=== PATIENT | male | born 1995 | race Caucasian/White ===

== ENCOUNTER 2017-12-28 18:14 | Emergency (ER) | payer BC ==
[~2017-12-28] VITALS: Ht 170.2 cm; Wt 62.7 kg
[2017-12-28 18:16] VITALS: TEMP 36.8; Ht 170.2 cm; Wt 62.7 kg
[2017-12-28] MEDS ORDERED: KETOROLAC TROMETHAMINE 30 MG/ML VIAL IV STA (18:31)
[2017-12-28] MEDS ORDERED: CEFTRIAXONE SOD INJ 1 GM ADDVIAL IV STA (18:31)
[2017-12-28 19:05] LABS: BASO % 0.1 %; BASO ABS # 0.01 K/uL (0-0.2); EOS % 0.6 %; EOS ABS # 0.06 K/uL (0-0.5); HEMOGLOBIN 15.7 g/dL (14.0-18.0); IG# 0.01 K/uL (0.00-0.02); LYMPH % 21.4 %; LYMPH ABS # 2.08 K/uL (1.2-3.4); MEAN CELL VOLUME 89.4 fL (80-100); MEAN CORPUSCULAR HEMOGLOBIN 31.9 pg (25-34); MEAN CORPUSCULAR HGB CONC 35.7 g/dl (32-36); MEAN PLATELET VOLUME 10.1 fL (7.4-10.4); MONO ABS # 1.17 K/uL (0.11-0.59); NEUT % 65.8 %; NEUT ABS # 6.39 K/uL (1.4-6.5); PLATELET COUNT 190 K/uL (130-400); RED CELL DISTRIBUTION WIDTH CV 12.7 % (11.5-14.5); RED CELL DISTRIBUTION WIDTH SD 41.2 fL (36.4-46.3); WHITE BLOOD COUNT 9.72 K/uL (4.8-10.8)
--- NOTE | 2017-12-28 19:18 | DIAGNOSTIC IMAGING REPORT ---
R KNEE 3 VIEWS HISTORY: 22 years-old Male Right knee swelling/injury acute right knee pain and swelling COMPARISON: None available TECHNIQUE: 3 views of the right knee FINDINGS: There is moderate to extensive prepatellar soft tissue swelling without opaque foreign body. No acute fracture, dislocation or significant degenerative changes. Trace joint effusion. IMPRESSION: 1. No acute fracture or dislocation. 2. Moderate to extensive prepatellar soft tissue swelling. Correlate clinically to exclude bursitis. The above report was generated using voice recognition software. It may contain grammatical, syntax or spelling errors. Electronically signed by: Vinny Dallas M.D. 12/28/2017 7:17 PM Dictated Date/Time: 12/28/2017 7:15 PM
[2017-12-28 19:25] LABS: CALCIUM 8.8 mg/dl (8.5-10.1); CREATININE 0.96 mg/dl (0.60-1.40); POTASSIUM 3.1 mmol/L (3.5-5.1); TOTAL PROTEIN 7.5 gm/dl (6.4-8.2); URIC ACID 3.8 mg/dl (2.6-7.2)
[2017-12-28] MEDS ORDERED: DOXY100C PO (20:25)
--- NOTE | 2017-12-28 21:11 | EMERGENCY ROOM VISIT NOTE ---
History First contact with patient: 18:20 Chief Complaint: KNEEPAIN Stated Complaint: SWELLING IN KNEE History of Present Illness The patient is a 22 year old male who presents to the Emergency Room with complaints of pain and swelling to his right knee over the past 1 day. The patient states that he had suffered a fall yesterday off a skateboard at [facility]. He fell onto the right knee in the morning, however he was able to participate in activities the rest of the day without difficulty. As it turned to evening he noticed some mild swelling and redness of the knee. He woke up today with significantly worse symptoms. He has not had fever or chills. He is able to ambulate and bend the knee without discomfort. He rates his discomfort a 5/10. He has not taken anything over the Counter for his symptoms. Review of Systems More than 10 systems were reviewed and otherwise negative with the exception of history of present illness. Past Medical/Surgical History No chronic medical disease Social History Smoking Status: Never Smoker Current/Historical Medications Scheduled Doxycycline Hyclate (Vibramycin), 100 MG PO BID Physical Exam Vital Signs Date Time Temp Pulse Resp B/P (MAP) Pulse Ox O2 Delivery O2 Flow Rate FiO2 12/28/17 18:16 36.8 75 17 118/70 98 Room Air Physical Exam VITALS: Vitals are noted on the nurse's note and reviewed by myself. Vital signs stable. GENERAL: Well-developed, well-nourished, white male, who is in no acute distress and resting comfortably. Patient is cooperative with the examination. HEAD: Normocephalic atraumatic. HEART: Regular rate and rhythm without murmurs gallops or rubs. LUNGS: Clear to auscultation bilaterally without wheezes, rales or rhonchi. No retractions or accessory muscle use. MUSCULOSKELETAL: There is a notable amount of edema with overlying erythema across the superior aspect of the patella. This does not appear to extend into the right joint itself. The patient is able to flex and extend the right knee against resistance without notable discomfort. Axial loading the right leg does not worsen discomfort. There is no significant lymphangitic streaking, however there is warmth to the right knee concerning for cellulitis. Ligamentous testing was unable to be performed because of the edema NEURO: Patient was alert and oriented to person place and time. CN II through XII grossly intact. Medical Decision & Procedures ER Provider Diagnostic Interpretation: R KNEE 3 VIEWS HISTORY: 22 years-old Male Right knee swelling/injury acute right knee pain and swelling COMPARISON: None available TECHNIQUE: 3 views of the right knee FINDINGS: There is moderate to extensive prepatellar soft tissue swelling without opaque foreign body. No acute fracture, dislocation or significant degenerative changes. Trace joint effusion. IMPRESSION: 1. No acute fracture or dislocation. 2. Moderate to extensive prepatellar soft tissue swelling. Correlate clinically to exclude bursitis. Laboratory Results 12/28/17 18:53 Red Blood Count 4.92, Mean Corpuscular Volume 89.4, Mean Corpuscular Hemoglobin 31.9, Mean Corpuscular Hemoglobin Concent 35.7, Mean Platelet Volume 10.1, Neutrophils (%) (Auto) 65.8, Lymphocytes (%) (Auto) 21.4, Monocytes (%) (Auto) 12.0, Eosinophils (%) (Auto) 0.6, Basophils (%) (Auto) 0.1, Neutrophils # (Auto ) 6.39, Lymphocytes # (Auto) 2.08, Monocytes # (Auto) 1.17, Eosinophils # (Auto ) 0.06, Basophils # (Auto) 0.01 12/28/17 18:53 Test 12/28/17 18:53 White Blood Count 9.72 K/uL (4.8-10.8) Red Blood Count 4.92 M/uL (4.7-6.1) Hemoglobin 15.7 g/dL (14.0-18.0) Hematocrit 44.0 % (42-52) Mean Corpuscular Volume 89.4 fL (80-100) Mean Corpuscular Hemoglobin 31.9 pg (25-34) Mean Corpuscular Hemoglobin Concent 35.7 g/dl (32-36) Platelet Count 190 K/uL (130-400) Mean Platelet Volume 10.1 fL (7.4-10.4) Neutrophils (%) (Auto) 65.8 % Lymphocytes (%) (Auto) 21.4 % Monocytes (%) (Auto) 12.0 % Eosinophils (%) (Auto) 0.6 % Basophils (%) (Auto) 0.1 % Neutrophils # (Auto) 6.39 K/uL (1.4-6.5) Lymphocytes # (Auto) 2.08 K/uL (1.2-3.4) Monocytes # (Auto) 1.17 K/uL (0.11-0.59) Eosinophils # (Auto) 0.06 K/uL (0-0.5) Basophils # (Auto) 0.01 K/uL (0-0.2) RDW Standard Deviation 41.2 fL (36.4-46.3) RDW Coefficient of Variation 12.7 % (11.5-14.5) Immature Granulocyte % (Auto) 0.1 % Immature Granulocyte # (Auto) 0.01 K/uL (0.00-0.02) Anion Gap 6.0 mmol/L (3-11) Est Creatinine Clear Calc Drug Dose 107.9 ml/min Estimated GFR () 130.4 Estimated GFR (Non- 112.5 BUN/Creatinine Ratio 15.6 (10-20) Uric Acid 3.8 mg/dl (2.6-7.2) Calcium Level 8.8 mg/dl (8.5-10.1) Total Bilirubin 0.7 mg/dl (0.2-1) Aspartate Amino Transf (AST/SGOT) 21 U/L (15-37) Alanine Aminotransferase (ALT/SGPT) 28 U/L (12-78) Alkaline Phosphatase 86 U/L (45-117) Total Protein 7.5 gm/dl (6.4-8.2) Albumin 4.0 gm/dl (3.4-5.0) Globulin 3.5 gm/dl (2.5-4.0) Albumin/Globulin Ratio 1.1 (0.9-2) Lyme Disease IgG Antibody NEG (NEG) Medications Administered Medications (Trade) Dose Ordered Sig/Jai Route Start Time Stop Time Status Last Admin Dose Admin Ceftriaxone Sodium (Rocephin Inj) 1 gm NOW STAT IV 12/28/17 18:31 12/28/17 18:33 DC 12/28/17 19:03 1 GM Ketorolac Tromethamine (Toradol Inj) 30 mg NOW STAT IV 12/28/17 18:31 12/28/17 18:33 DC 12/28/17 19:04 30 MG ED Course Physical exam and history were performed. Nursing notes, EMR, and Medication List were personally reviewed. Patient appears to have pain and swelling to his right knee. The patient appears to have suffered a fall yesterday, but his right knee is very edematous and warm. The patient is afebrile. IV access was established and labs were obtained. The patient was given a dose of IV Rocephin here in the department. X-rays were obtained. The patient's blood work is as above and was reviewed. He does not have a significantly elevated white blood cell count, gross anemia, bandemia, or significant electrolyte imbalance. Uric acid is negative. Lyme is equivocal with Western blot confirmation pending. X-ray was reviewed by myself and radiology showing no acute fracture or dislocation, however there is noted prepatellar swelling. I did discuss the case with my attending, Dr. Beverly, who agrees that the swelling appears to be in the prepatellar space and not the joint itself. Overall the patient appears well for discharge home. He is able to ambulate despite his swelling. The patient will be treated for both a cellulitis and possible equivocal Lyme with doxycycline. The patient should follow with orthopedics tomorrow, as [facility] have a standing appointment with [facility] every day. The patient was otherwise invited back to the ER with any new, worsening, or concerning symptoms. He was pleased with plan of care. The chart was completed utilizing [employer] Speech Voice Recognition Software. Grammatical errors, random word insertions, pronoun errors, and incomplete sentences are an occasional consequence of this system due to software limitations, ambient noise, and hardware issues. Any formal questions or concerns about the content, text, or information contained within the body of this dictation should be directly addressed to the provider for clarification. . Medical Decision Differential diagnosis: Etiologies such as cellulitis, abscess, MRSA infection, DVT, necrotizing fasciitis, dermatitis, drug eruption, as well as others were entertained.. Impression Primary Impression: Cellulitis of right knee Departure Information Dispostion Home / Self-Care Condition GOOD Prescriptions Doxycycline Hyclate (VIBRAMYCIN) 100 Mg Cap 100 MG PO BID for 21 Days, #42 CAP Prov: Walter Avendaño PA-C 12/28/17 Referrals Suman Pineda D.O. Forms HOME CARE DOCUMENTATION FORM, IMPORTANT VISIT INFORMATION Patient Instructions My [facility] Additional Instructions You were seen and evaluated today on an emergency basis only. This is not a substitute for, or an effort to provide, complete comprehensive medical care. It is not possible to recognize and treat all injuries or illnesses in a single emergency department visit. For this reason it is recommended that you followup with [facility] tomorrow for ongoing care and evaluation. They should have a standing appointment for Simi duran. Doxycycline twice a day for 21 days. Avoid exposure to the sun/UV light while on this medication or use frequent application of SPF 50 or higher due to increased sensitivity to UV rays and high risk for severe joseph. TAKE THIS WITH A MEAL TO PREVENT UPSET STOMACH. You are welcome to return to the emergency department anytime with new, worsening, or concerning symptoms.
[2017-12-28 21:13] VITALS: BP 115/68; PULSE 79; O2SAT 100
== END 2017-12-28 21:06 | disposition home or self-care (01) ==
LOC: C.EDB 18:15 → C.EDD 21:06
DX: L03.115 Cellulitis of right lower limb (principal); M25.561 Pain in right knee; V00.131A Fall from skateboard, initial encounter; Y93.51 Activity, roller skating (inline) and skateboarding; Y92.39 Other specified sports and athletic area as the place of occurrence of the external cause